=== PATIENT | male | born 2000 | race Caucasian/White ===

== ENCOUNTER 2024-06-05 11:33 | Emergency (ER) | payer OTHER ==
[~2024-06-05] VITALS: Ht 185.4 cm; Wt 86.4 kg
[2024-06-05 11:36] VITALS: TEMP 97.9
[2024-06-05] MEDS: ACETAMINOPHEN 500 MG TABLET PO ONE (14:08)
[2024-06-05] MEDS: IBUPROFEN 600 MG TABLET PO ONE (14:09)
[2024-06-05] MEDS: BACITRACIN 0.9 GM PACKET OINTMENT TP ONE (14:09)
[2024-06-05] MEDS: LIDOCAINE 1% 10 ML VIAL SQ ONE (14:10)
[2024-06-05 14:15] VITALS: BP 119/64; PULSE 66; RESP 17; O2SAT 98
[2024-06-05] MEDS ORDERED: IBUP-1554 PO (14:38)
[2024-06-05] MEDS ORDERED: ACET-66 PO (14:38)
[2024-06-05] MEDS ORDERED: BACI28.410 TP (14:38)
== END 2024-06-05 14:58 | disposition home or self-care (01) ==
LOC: EMS 11:33
DX: S01.01XA Laceration without foreign body of scalp, initial encounter (principal); S01.312A Laceration without foreign body of left ear, initial encounter; W22.8XXA Striking against or struck by other objects, initial encounter; Y93.01 Activity, walking, marching and hiking; Y92.89 Other specified places as the place of occurrence of the external cause; Y99.8 Other external cause status
CPT/HCPCS: 99283; 12002; 12013; J3490; 12004